=== PATIENT | male | born 1945 | race Caucasian/White ===

== ENCOUNTER → 2017-04-29 | Outpatient (CLI) | payer BC ==
[~2017-04-29] MED LIST: ASPI325T45 PO; ATOR-26 PO; CALCTAB5 PO; CLOP1TAB15 PO; CYAN10005 PO; GLC500 PO; HYDC25 PO; INSU100I17 SC; INSU1INJ7 SC; LISI20TA3 PO; METH-589 PO; RANI300T2 PO
[2017-04-29 12:19] LABS: HEMATOCRIT 30.1 % (42-52); MEAN CORPUSCULAR HEMOGLOBIN 38.4 pg (25-34); MEAN CORPUSCULAR HGB CONC 32.6 g/dl (32-36); MEAN PLATELET VOLUME 9.1 fL (7.4-10.4); PLATELET COUNT 568 K/uL (130-400); RED BLOOD COUNT 2.55 M/uL (4.7-6.1); WHITE BLOOD COUNT 10.71 K/uL (4.8-10.8)
[2017-04-29 12:27] LABS: ALT/SGPT 21 U/L (12-78); BLOOD UREA NITROGEN 11 mg/dl (7-18); BUN/CREATININE RATIO 11.8 (10-20); CALCIUM 9.3 mg/dl (8.5-10.1); CARBON DIOXIDE 26 mmol/L (21-32); CHLORIDE 104 mmol/L (98-107); CHOLESTEROL 140 mg/dl (0-200); CREATININE 0.89 mg/dl (0.60-1.40); GLUCOSE 130 mg/dl (70-99); POTASSIUM 4.2 mmol/L (3.5-5.1); SODIUM 139 mmol/L (136-145); TRIGLYCERIDES 69 mg/dl (0-150); VERY LOW DENSITY LIPOPROT CALC 14 mg/dl
[2017-04-29 12:35] LABS: ALB/GLOB RATIO 0.9 (0.9-2); ALKALINE PHOSPHATASE 97 U/L (45-117); AST/SGOT 16 U/L (15-37); CHOLESTEROL/HDL RATIO 3.6; HDL CHOLESTEROL 39 mg/dl; LDL CHOLESTEROL CALCULATED 87 mg/dl; PROSTATE SPECIFIC ANTIGEN < 0.010 ng/ml (0.000-4.000); THYROID STIMULATING HORMONE 0.584 uIu/ml (0.300-4.500)
[2017-04-29 12:51] LABS: BASO % 0.2 %; BASO ABS # 0.02 K/uL (0-0.2); COMPLETE YES; EOS % 2.5 %; HYPERSEGMENTED POLYS 1+; IG% 2.6 %; LYMPH % 10.2 %; LYMPH ABS # 1.09 K/uL (1.2-3.4); MONO % 33.5 %; TOXIC GRANULATION 1+
== END | disposition home or self-care (01) ==
LOC: C.LAB1850 10:27
PROVIDERS: ATTEND Internal Medicine
DX: E78.5 Hyperlipidemia, unspecified (principal); E66.9 Obesity, unspecified; E05.90 Thyrotoxicosis, unspecified without thyrotoxic crisis or storm; E11.9 Type 2 diabetes mellitus without complications; C61 Malignant neoplasm of prostate

== ENCOUNTER → 2017-06-10 | Outpatient (CLI) | payer BC ==
[2017-06-10 14:40] LABS: HEMATOCRIT 25.5 % (42-52); MEAN CELL VOLUME 121.4 fL (80-100); MEAN CORPUSCULAR HEMOGLOBIN 38.6 pg (25-34); MEAN CORPUSCULAR HGB CONC 31.8 g/dl (32-36); MEAN PLATELET VOLUME 8.9 fL (7.4-10.4); PLATELET COUNT 660 K/uL (130-400); WHITE BLOOD COUNT 25.51 K/uL (4.8-10.8)
== END | disposition home or self-care (01) ==
LOC: C.LAB1850 13:43
PROVIDERS: ATTEND Physician Assistant
DX: D64.9 Anemia, unspecified (principal)